=== PATIENT | male | born 1940 | race Caucasian/White ===

== ENCOUNTER 2019-12-05 17:36 | Outpatient (REF) | payer MEDICARE, SELFPAY | END 2019-12-05 17:37 | disposition home or self-care (01) | LOC: HO.LAB 17:36 | PROVIDERS: PCP Internal Medicine; Visit Provider Internal Medicine | DX: Z20.828 Contact with and (suspected) exposure to other viral communicable diseases (principal); J40 Bronchitis, not specified as acute or chronic; R50.9 Fever, unspecified | CPT/HCPCS: U0003 ==

== ENCOUNTER 2019-12-08 11:35 | Outpatient (REF) | payer MEDICARE, SELFPAY ==
--- NOTE | 2019-12-08 11:55 | XR_ITS ---
EXAMINATION: XR CHEST CLINICAL INFORMATION: Bronchitis. COMPARISON: Chest 07/04/2012 TECHNIQUE: 2 views of the chest were obtained. FINDINGS: There is a diffuse patchy opacity seen in the right middle lobe, right lower lobe and left lower lobe with increase interstitial markings in both suggestive of developing infiltrates. No pleural effusion seen. Heart size and pulmonary vascularity is normal. No gross bony abnormality seen. XR/XR chest 2V IMPRESSION: Findings are suggestive of developing patchy infiltrates in both lungs.
[2019-12-08 13:29] LABS: Alanine Aminotransferase 112 U/L (0-40); Albumin Level 3.4 g/dL (3.5-5.0); Alkaline Phosphatase 61 U/L (39-117); Anion Gap 20 (12-20); Aspartate Amino Transferase 166 U/L (5-37); Bilirubin Total 1.1 mg/dL (0.0-1.0); Blood Urea Nitrogen 57 mg/dL (9-16); Calcium 7.9 mg/dL (8.4-10.2); Carbon Dioxide 28 mmol/L (22-29); Chloride 92 mmol/L (96-108); Cholesterol 123 mg/dL; Estimated Glomerular Filt Rate 26; Glucose Fasting 161 mg/dL (60-99); HDL Cholesterol 21 mg/dL; LDL Cholesterol Calculated 68 mg/dl; Sodium 137 mmol/L (135-145); Total Protein 7.2 g/dL (6.5-8.0); Triglycerides 171 mg/dL
[2019-12-13 12:47] LABS: Vitamin D 25-OH, D2 7 ng/mL; Vitamin D 25-OH, D3 56 ng/mL; Vitamin D 25-OH, Total 63 ng/mL (30-100)
== END 2019-12-08 11:36 | disposition home or self-care (01) ==
LOC: HO.LAB 11:35
PROVIDERS: Absent Provider Internal Medicine; PCP Internal Medicine; Visit Provider Internal Medicine
DX: E78.00 Pure hypercholesterolemia, unspecified (principal); E55.9 Vitamin D deficiency, unspecified; I10 Essential (primary) hypertension; J40 Bronchitis, not specified as acute or chronic; R50.9 Fever, unspecified
CPT/HCPCS: 71046; 80053; 80061; 82306